=== PATIENT | male | born 1975 | race Caucasian/White ===

== ENCOUNTER 2018-01-19 22:28 | Emergency (ER) | payer BC ==
[~2018-01-19] VITALS: Ht 182.9 cm; Wt 137.4 kg
[2018-01-19 22:37] VITALS: Ht 182.9 cm; Wt 137.4 kg
[2018-01-20 02:17] VITALS: BP 158/94
== END 2018-01-20 02:17 | disposition home or self-care (01) ==
LOC: ED 22:28
DX: S02.2XXB Fracture of nasal bones, initial encounter for open fracture (principal); S06.9X0A Unspecified intracranial injury without loss of consciousness, initial encounter; W22.8XXA Striking against or struck by other objects, initial encounter; Y93.89 Activity, other specified; Y92.89 Other specified places as the place of occurrence of the external cause; Y99.8 Other external cause status